=== PATIENT | female | born 1930 | race Caucasian/White ===

== ENCOUNTER → 2016-12-06 | Outpatient (CLI) | payer MEDICARE ==
--- NOTE | 2016-12-06 16:57 | PCVCIMAG ---
APPROVED REPORT Study performed: 12/06/2016 09:14:56 EXAM: Comprehensive 2D, Doppler, and color-flow Echocardiogram Patient Location: Echo lab Status: routine BSA: 1.64 HR: 81 bpmBP: 118/60 mmHg Rhythm: LBBB Other Information Study Quality: Good Indications Cardiomyopathy Paroxysmal Atrial Fibrillation 2D Dimensions IVSd: 14.40 (7-11mm)LVOT Diam: 18.35 (18-24mm) LVDd: 39.14 mm PWd: 14.52 (7-11mm)Ascending Ao: 26.25 (22-36mm) LVDs: 33.13 (25-40mm) Left Atrium: 32.57 (27-40mm) Aortic Root: 19.67 mm LV Single Plane 2CH: 50.95 % Volumes Left Atrial Volume (Systole) Single Plane 4CH: 19.77 mLSingle Plane 2CH: 20.23 mL LA ESV Index: 13.00 mL/m2 Aortic Valve AoV Peak Fabien.: 1.46 m/s AO Peak Gr.: 8.54 mmHgLVOT Max P.54 mmHg LVOT Max V: 0.80 m/s JEREMY Vmax: 1.44 cm2 Mitral Valve E/A Ratio: 0.6 MV Decel. Time: 235.11 ms MV E Max Fabien.: 0.63 m/s MV A Fabien.: 1.13 m/s IVRT: 154.56 ms TDI E/Lateral E': 12.60E/Medial E': 15.75 Medial E' Fabine.: 0.04 m/s Lateral E' Fabien.: 0.05 m/s Pulmonary Valve PV Peak Gr.: 4.83 mmHg Pulmonary Vein P Vein S: 0.51 m/sP Vein A: 0.31 m/s P Vein D: 0.70 m/sP Vein A Dur.: 64.6 msec P Vein S/D Ratio: 0.73 Tricuspid Valve TR Peak Fabien.: 2.69 m/sRAP Estimate: 7.00 mmHg TR Peak Gr.: 29.03 mmHg PA Pressure: 36.00 mmHg Left Ventricle Left ventricle is grossly normal size. Mild concentric left ventricular hypertrophy. Left ventricular systolic function is mildly decreased. LVEF is 45%. Grade I - abnormal relaxation pattern. Right Ventricle The right ventricle is normal size. The right ventricular systolic function is normal. RV free wall thickened. Atria Left atrium is at the upper limits of normal. The right atrium size is normal. Aortic Valve Aortic valve is thickened but has adequate excursion. Mitral Valve There is mitral annular calcification. Mitral valve leaflets are thickened. Trace to mild mitral regurgitation. Tricuspid Valve Trace tricuspid regurgitation. Pulmonic Valve Pulmonic valve is not well visualized. Mild pulmonic regurgitation. Great Vessels IVC is normal in size and collapses >50% with inspiration. <Conclusion> Left ventricle is grossly normal size. Mild concentric left ventricular hypertrophy. Left ventricular systolic function is mildly decreased. Left atrium is at the upper limits of normal. The right ventricle is normal size. The right ventricular systolic function is normal. The right atrium size is normal. Aortic valve is thickened but has adequate excursion. There is mitral annular calcification. Mitral valve leaflets are thickened. Trace to mild mitral regurgitation. Pulmonic valve is not well visualized. Mild pulmonic regurgitation.
== END | disposition home or self-care (01) ==
LOC: PCVCIMAG 09:14
PROVIDERS: ATTEND Internal Medicine
DX: I34.0 Nonrheumatic mitral (valve) insufficiency (principal); I07.1 Rheumatic tricuspid insufficiency; I37.1 Nonrheumatic pulmonary valve insufficiency; I48.0 Paroxysmal atrial fibrillation; I42.9 Cardiomyopathy, unspecified; I44.7 Left bundle-branch block, unspecified
CPT/HCPCS: 93005; 93306